=== PATIENT | female | born 1975 | race Caucasian/White ===

== ENCOUNTER → 2021-03-30 | Outpatient (CLI) | payer BC ==
[~2021-03-30] MED LIST: AGM875T PO; NF-ESOM40C
--- NOTE | 2021-03-30 13:06 | Diagnostic Imaging Report ---
PROCEDURE: Pelvic comp/transvaginal sonogram. TECHNIQUE: Complete transabdominal and transvaginal pelvic ultrasound was performed. In addition, limited pelvic Doppler was performed. INDICATION: Abnormal uterine bleeding. FINDINGS: Uterus is anteverted measuring 8.1 x 4.3 x 6.6 cm. Endometrium is 3 mm in thickness. There is an area of heterogeneity near the uterine fundus measuring 1.8 x 1.7 cm. Smaller area of heterogeneity in the posterior uterine body is noted measuring 0.8 cm. These could represent fibroids. No other myometrial mass is identified. Right ovary measures 3.1 x 1.3 x 2.2 cm and the left ovary measures 2.6 x 1.6 x 1.9 cm. Right ovary contains approximately 15 mm cyst. Left ovary contains approximately 17 mm cyst. There is blood flow to both ovaries. No adnexal mass or free fluid is seen. IMPRESSION: 1. Probable uterine fibroids. 2. Bilateral ovarian cysts. Dictated by: Dictated on workstation # [id number]
== END ==
LOC: RAD 10:00
PROVIDERS: ATTEND Obstetrics & Gynecology
DX: N83.201 Unspecified ovarian cyst, right side (principal); N83.202 Unspecified ovarian cyst, left side
CPT/HCPCS: 76830; 76856